=== PATIENT | female | born 2005 | race Caucasian/White ===

== ENCOUNTER 2023-11-14 15:50 | Outpatient (CLI) | payer OTHER, SELFPAY ==
[2023-11-14 23:17] LABS: Chlamydia DNA Amplified* NOT DETECTED (No Detected); GC DNA Amplified* NOT DETECTED (No Detected)
== END 2023-11-14 15:51 | disposition home or self-care (01) ==
PROVIDERS: Visit Provider Nurse Practitioner Family
DX: R50.9 Fever, unspecified (principal); R52 Pain, unspecified; B27.90 Infectious mononucleosis, unspecified without complication; R82.90 Unspecified abnormal findings in urine; Z87.440 Personal history of urinary (tract) infections; Z11.3 Encounter for screening for infections with a predominantly sexual mode of transmission; Z11.4 Encounter for screening for human immunodeficiency virus [HIV]; Z11.9 Encounter for screening for infectious and parasitic diseases, unspecified
CPT/HCPCS: 86618; 86703; 87086; 87185; 87186; 87491; 87591

== ENCOUNTER 2024-09-07 | Emergency (ER) | payer OTHER, SELFPAY ==
[2024-09-07 00:07] VITALS: BP 142/85; PULSE 82; RESP 18; TEMP 36.8; O2SAT 96; BMI 20.4
[2024-09-07 00:15] LABS: Appearance Urine Cloudy (Clear); Bilirubin Urine 1+ (Negative); Blood Urine 3+ (Negative); Color Urine Yellow (Yellow); Glucose Urine Negative (Negative); Ketones Urine 2+ (Negative); Leukocyte Esterase Urine Trace (Negative); Nitrite Urine Negative (Negative); Protein Urine 3+ (Negative); Specific Gravity Urine >= 1.030 (1.000-1.030)
[2024-09-07 00:19] LABS: Ur HCG Qualitative* POSITIVE (Negative)
[2024-09-07 00:23] LABS: Bacteria Urine Few; Squamous Epithelial Cell Urine Few (None-Few)
[2024-09-07 00:24] LABS: Mucus Urine Moderate
--- NOTE | 2024-09-07 00:29 | CRLHL7_ITS ---
For Patients: As a result of the Century Cures Act, medical imaging exams and procedure reports are released immediately into your electronic medical record. You may view this report before your referring provider. If you have questions, please contact your health care provider. INDICATION: Vaginal bleeding. TECHNIQUE: Ultrasound OB pelvis transabdominal and transvaginal. Real-time rodriguez-scale imaging of the pelvis was performed. COMPARISON: None. FINDINGS: No intrauterine identified. Uterus is unremarkable. Endometrium measures 6 mm. Ovaries are normal in size and demonstrate normal blood flow. Left ovarian corpus luteal cyst. Hypoechoic area in the right adnexa separate from but adjacent to the right ovary measuring 2.5 x 1.8 x 1.4 cm. No suspicious fluid collections noted in the cul-de-sac. IMPRESSION: 1. No intrauterine . 2. Hypoechoic area in the right adnexa separate from but adjacent to the right ovary measuring 2.5 x 1.8 x 1.4 cm, nonspecific. Ectopic would be a differential consideration. Dictated by Jorgito Stevens MD @ 09/07/2024 2:12:59 AM (Electronically Signed)
--- NOTE | 2024-09-07 00:37 | ED_ITS ---
HPI - General Adult General Chief complaint: Vaginal Bleeding Stated complaint: +preg test/spotting Time Seen by Provider: 09/07/24 00:24 Source: patient Mode of arrival: ambulatory Limitations: no limitations History of Present Illness HPI narrative: 19-year-old female presents to the emergency department for evaluation of lower pelvis cramping and vaginal spotting. She is on a continuous oral contraceptive for migraines, does not get regular menstrual cycle. Started having spotting 3 days ago and then heavier bleeding tonight. No passage of tissue. Did soak through a regular tampon about a 1/2 hour, is now contained in a super tampon. She called [facility] and they advised her to take a test which was surprisingly positive. She reports that she was in a regular monogamous relationship until about 2 weeks ago. She has not had any symptoms of such as nausea, excessive fatigue, etc.. No trauma or injury. No prior history of abdominal surgeries. Denies symptoms of STDs. Does not take any anticoagulants. Has not taken any Tylenol or other medications to help with the cramping. No trauma or injury. Reports that her past medical history is benign, has a history of depression well controlled on bupropion 150 mg extended release once daily. Only other home medication besides of appropriate in is the low-dose oral contraceptive. Allergy to azithromycin causing diarrhea. Does have a prior history of tobacco use. ROS is notable for the pelvic and gynecological symptoms only, otherwise denies times 12 systems. Related Data Previous Rx's ?Medication ?Instructions ?Recorded norethindrone acetate 1 mg-ethinyl 1 tab PO QDAY #63 t abs 03/01/24 estradiol 20 mcg tablet (Alanna) bupropion HCl 150 mg 24 hr tablet, 150 mg PO QAM #30 t abs 05/19/24 extended release (Wellbutrin XL) Allergies Allergy/AdvReac Type Severity Reaction Status Date / Time azithromycin Allergy Intermediate Diarrhea Verified 03/01/24 09:[address] [facility] Medical History Cigarette smoker (2021) ?F17.210 - Nicotine dependence, cigarettes, uncomplicated (ICD-10) Migraine ?G43.909 - Migraine, unspecified, not intractable, without status migrainosus (ICD-10) Depression (~2019) ?F32.A - Depression, unspecified (ICD-10) Surgical History No history of previous surgery Family History Maternal Grandmother Myocardial infarction, Onset Age: 90 Ovarian cancer, Onset Age: 80 Family/Other Colon cancer Maternal Grandfather Prostate cancer, Onset Age: 55 Mother Depression Brother ADHD Social History Narrative: Single, [place] student [employer], no kids Exercise twice a week ultimate Fris[employer] Smoke is 2 cigarettes a day, 2 pack years 4 alcoholic drinks a week Marijuana use twice a week What is your current living situation?: I presently have a place to live Problems where you live: no known problems In the past 12 months, utilities in danger of being shut off: no In past 12 months, lack of transportation kept you from medical appts, meetings, work, or getting things needed for daily living: no In the past 12 mos, have been you worried that your food would run out before you had money to buy more?: never true In the past 12 mos, the food you bought just didn't last and you didn't have money to buy more?: never true How often does anyone, including family, friends and others, physically hurt you : never How often does anyone, including family, friends and others, insult or talk down to you: never How often does anyone, including family, friends and others, threaten you with harm: never How often does anyone, including family, friends and others, scream or curse at you: never Exam Const: Vital Signs, click to edit/add: Vital Signs - 24 hr 09/07/24 00:07 Temperature 98.3 F Pulse Rate [Left P ulse Oximeter] 82 Respiratory Rate 18 Blood Pressure [Ri ght Upper Arm] 142/85 H Pulse Oximetry 96 Oxygen Delivery Me thod Room Air Documenting provider has reviewed patient's vital signs: yes Common normals: no apparent distress General appearance: cooperative, comfortable and well kempt Other: Excellent historian. HENMT: Common normals: normocephalic, moist oral mucous membranes and oropharynx normal Head and scalp: normocephalic Eye: Common normals: conjunctivae normal General eye: normal appearance of both eyes Conjunctiva: conjunctiva(e) normal Resp: Common normals: normal respiratory effort and clear to auscultation bilaterally Effort & inspection: able to speak in complete sentences Auscultation: clear to auscultation bilaterally Cardio: Common normals: regular rate, regular rhythm, S1 normal heart sound, S2 normal heart sound and no murmurs Rate: regular rate Rhythm: regular rhythm Heart sounds: S1 normal and S2 normal GI: Common normals: Normal to inspection, nondistended, normoactive bowel sounds present, soft to palpation, no hepatosplenomegaly and no masses Palpation: soft and no hepatosplenomegaly Other: Fundal height not palpable. Mild tenderness to right suprapubic area. No rebound tenderness or guarding. Extremity: Common normals: normal to inspection and normal capillary refill Psych: Common normals: cooperative Appearance: well kempt Attitude: engaged Activity/motor behavior: appropriate eye contact Attention/concentration: attention grossly intact Memory/cognition: memory grossly intact Insight: insight good Judgement: judgment good Skin: Common normals: no rashes or lesions noted General skin exam: no rashes or lesions noted Course Course ED Course: 19-year-old female with positive test, now with right lower quadrant pain and spotting. Parental diagnosis less likely appendicitis, more likely miscarriage, normal , ectopic , less likely kidney stone or other intra-abdominal process. Will obtain blood type, hCG level, CBC. I have called an ultrasound because it will take some time to get these results and will then [place] back and perform pelvic exam while we are waiting for these studies. No initial signs of hypotension, tachycardia or other signs of dangerous hemorrhage. Reevaluation(s) Reevaluation #1: Preliminary read on the ultrasound is suspicious for ectopic . Ob provider consult id. Patient's hCG level is right around a 1000. She is a good candidate for methotrexate. Patient and I talked extensively about the risks and benefits of methotrexate, side effect profile. I cannot guarantee that there is an ectopic but it is highly suspicious based on her symptoms, ultrasound findings. Counseled patient that if she did elect to use the methotrexate for treatment of this ectopic , it would and a potentially viable . This is incredibly low risk but cannot completely be determine. Waiting longer to tell for sure does put her health at risk and could impair future fertility. She would be at risk of tubal rupture, fatal hemorrhage or other dangerous condition. Upon discussion of risks benefits and treatment options, she is favoring methotrexate treatment. I do agree that this is her safest option, Ob provider supportive as well. She is Rh negative, prophylactic protocol initiated, will likely need micro RhoGAM dose. Counseled patient that she will require follow-up labs on days 4 and 7. She will need to see provider on day 7 as well. She verbalizes understanding and agreement. Methotrexate has a high success rate but if she has severe bleeding, severe pain, other signs of complications she would need to be re-evaluated in the emergency room right away. RhoGAM and methotrexate dose is given per nursing team. Vital Signs Vital signs: Initial Vital Signs Temperature 98.3 F 09/07/24 00:07 Temperature Source Temporal Artery Scan 09/07/24 00:07 Pulse Rate 82 09/07/24 00:07 Respiratory Rate 18 09/07/24 00:07 Blood Pressure 142/85 H 09/07/24 00:07 Blood Pressure Mean 104 09/07/24 00:07 Blood Pressure Position Sitting 09/07/24 00:07 Pulse Oximetry 96 09/07/24 00:07 Oxygen Delivery Method Room Air 09/07/24 00:07 Vital Signs Temperature 98.3 F 09/07/24 00:07 Pulse Rate 82 09/07/24 00:07 Respiratory Rate 18 09/07/24 00:07 Blood Pressure 142/85 H 09/07/24 00:07 Pulse Oximetry 96 09/07/24 00:07 Oxygen Delivery Method Room Air 09/07/24 00:07 Temperature 98.3 F 09/07/24 00:07 Pulse Rate 82 09/07/24 00:07 Respiratory Rate 18 09/07/24 00:07 Blood Pressure 142/85 H 09/07/24 00:07 Pulse Oximetry 96 09/07/24 00:07 Oxygen Delivery Method Room Air 09/07/24 00:07 Medications Administered Medications: Discontinued Medications Generic Name Dose Route Start Last Admin Trade Name Freq PRN Reason Stop Dose Admin Methotrexate 85 mg 09/07/24 02:24 09/07/24 03:15 Methotrexate 25 Mg/Ml Inj 50 mg/m2 (85 mg) 09/07/24 02:25 85 mg IM Administration ONCE ONE Medical Decision Making Lab Data Lab results reviewed: Yes I reviewed the patient's lab results Lab results narrative: Positive test, blood type is B negative. HCG level is around a 1000. Labs: Lab Results 09/07/24 09/07/24 09/07/24 Range/Units 00:03 00:45 02:19 WBC 12.05 H (4.50-11.00) K/uL RBC 4.08 (4.00-5.20) m/uL Hgb 13.0 (12.0-16.0) gm/dL Hct 38.9 (33.0-51.0) % MCV 95 (80-100) fL MCH 32 (26-34) pg MCHC 33 (32-36) gm/dL RDW Coeff of Aravind 13.1 (11.5-15.5) % Plt Count 228 (140-440) K/uL Neut % (Auto) 73.0 H (42.0-72.0) % Lymph % (Auto) 16.8 L (20-44) % [place] % (Auto) 6.1 (0.0-11.0) % Eos % (Auto) 2.7 (0.0-7.0) % Baso % (Auto) 0.5 (0.0-3.0) % Neut # (Auto) 8.80 H (1.7-7.0) K/uL Lymph # (Auto) 2.00 (0.90-2.90) K/uL [place] # (Auto) 0.70 (0.00-0.90) K/UL Eos # (Auto) 0.30 (0.00-0.50) K/uL Baso # (Auto) 0.10 (0.00-0.30) K/uL Abs Immat Gran (auto) 0.10 (0.00-0.30) K/uL Imm/Tot Granulo (auto) 0.9 % BUN 10 (5-24) mg/dL Creatinine 0.6 (0.5-1.5) mg/dL Estimated Creat Clear 138.07 Estimated GFR 131 ml/min AST 35 (12-35) U/L ALT 18 (4-35) U/L HCG, Quant 1010.90 mIU/mL Urine Color Yellow (Yellow) Urine Appearance Cloudy A (Clear) Urine pH 6.0 (5.0-8.5) Ur Specific [place] >= 1.030 (1.000-1.030) Urine Protein 3+ A (Negative) Urine Glucose (UA) Negative (Negative) Urine Ketones 2+ A (Negative) Urine Blood 3+ A (Negative) Urine Nitrite Negative (Negative) Urine Bilirubin 1+ A (Negative) Urine Urobilinogen 1.0 (0.2-1.0) Ur Leukocyte Esterase Trace A (Negative) Urine RBC 2-5 A (0-2) Urine WBC 2-5 (0-5) Ur Squamous Epith Cells Few (None-Few) Urine Bacteria Few A (None) Urine Mucus Moderate A (None) Urine HCG, Qual POSITIVE H (Negative) Lab Acknowledgement Test Added Blood Type B Negative 09/07/24 09/07/24 Range/Units 02:39 02:57 WBC (4.50-11.00) K/uL RBC (4.00-5.20) m/uL Hgb (12.0-16.0) gm/dL Hct (33.0-51.0) % MCV (80-100) fL MCH (26-34) pg MCHC (32-36) gm/dL RDW Coeff of Aravind (11.5-15.5) % Plt Count (140-440) K/uL Neut % (Auto) (42.0-72.0) % Lymph % (Auto) (20-44) % [place] % (Auto) (0.0-11.0) % Eos % (Auto) (0.0-7.0) % Baso % (Auto) (0.0-3.0) % Neut # (Auto) (1.7-7.0) K/uL Lymph # (Auto) (0.90-2.90) K/uL [place] # (Auto) (0.00-0.90) K/UL Eos # (Auto) (0.00-0.50) K/uL Baso # (Auto) (0.00-0.30) K/uL Abs Immat Gran (auto) (0.00-0.30) K/uL Imm/Tot Granulo (auto) % BUN (5-24) mg/dL Creatinine (0.5-1.5) mg/dL Estimated Creat Clear Estimated GFR ml/min AST (12-35) U/L ALT (4-35) U/L HCG, Quant mIU/mL Urine Color (Yellow) Urine Appearance (Clear) Urine pH (5.0-8.5) Ur Specific [place] (1.000-1.030) Urine Protein (Negative) Urine Glucose (UA) (Negative) Urine Ketones (Negative) Urine Blood (Negative) Urine Nitrite (Negative) Urine Bilirubin (Negative) Urine Urobilinogen (0.2-1.0) Ur Leukocyte Esterase (Negative) Urine RBC (0-2) Urine WBC (0-5) Ur Squamous Epith Cells (None-Few) Urine Bacteria (None) Urine Mucus (None) Urine HCG, Qual (Negative) Lab Acknowledgement Test Added Test Added Blood Type Imaging Data Abdominal ultrasound: Attestation: I have reviewed the pertinent imaging results. My impression: No signs of an intrauterine but there is a quarter-sized mass near the right ovary that is suspicious for an ectopic . Radiologist's impression: IMPRESSION: 1. No intrauterine . 2. Hypoechoic area in the right adnexa separate from but adjacent to the right ovary measuring 2.5 x 1.8 x 1.4 cm, nonspecific. Ectopic would be a differential consideration. Dictated by Jorgito Stevens MD @ 09/07/2024 2:12:59 AM Discharge Plan Discharge Clinical Impression: Ectopic of right ovary Patient Disposition: Home w/ Parent or Adult Condition: Improved Instructions: Ectopic (DC) Additional Instructions: As we discussed, we are highly suspicious of an ectopic next to your right ovary. There are no signs of developing inside your uterus. This is not compatible with a baby that could survive. After discussion of the options, I completely agree with your choice for the methotrexate, this single dose was given here in the emergency room. This will stay in your system for several weeks. It will be strongest for the next week. No alcohol for at least 10 days, even then use smaller than your typical amounts for a total of 4 weeks. I would recommend that you continue taking your control. You will need follow-up labs on Friday and then an office visit Friday or Friday to see an Ob provider and have labs performed again. Falling hCG levels would be a sign of success with the methotrexate. It is okay to use Tylenol for pain and cramping. High doses in frequent dosing of ibuprofen may make the methotrexate slightly less effective but if you have very bothersome pain, it is okay to use. Severe symptoms would be unexpected and I would like for you to be re-evaluated. The bleeding may increase slightly for 1-2 days with use of the methotrexate but then tends to slow again. Your unlikely to passed tissue because of the ectopic . The bleeding that your having tonight is pretty similar to what you should expect for the next couple of days. Light activity only for the next 48 hours, then increasing as you feel comfortable. It is okay to attend class as long as there is no heavy physical exertion. It is okay to continue your Wellbutrin. Activity Level: Activity as Tolerated Discharge Diet: Regular Prescriptions: No Action norethindrone ac-eth estradiol [Alanna 05/03 ()] 1-20 mg-mcg tablet 1 tab PO QDAY Qty: 63 4RF Rx Instructions: Take continuously, no placebo week. bupropion HCl [Wellbutrin XL] 150 mg tablet extended release 24 hr 150 mg PO QAM Qty: 30 0RF Follow Up/Referrals: Elly Deleon MD [Primary Care Provider, Family Practice] Stand Alone Forms: Ludesi Info Instructions
--- OUTSIDE RECORDS SUMMARY | 2024-09-07 00:44 | XMS_ITS | Clinical Summary ---
Author Organization [facility] Address [id number] [place] [address] Care Team Providers Care Junior Designer Name Role Phone Unavailable Primary Care Provider Unavailabl e Source Comments You are receiving this document as you are listed as the primary care provider,follow-up provider, or the patient has been referred to you for consultation.This is in compliance with the Medicare and[facility] EHR Incentive Program,which states Providers who transition their patient to another setting of careor provider of care or refers their patient to another provider of care shouldprovide summary care record for each transition of care or referral. The Networking Effect Allergies Active Allergy Reactions Criticality Noted Date Comments Azithromycin Other, see comments High 06/08/2016 Diarrhea Medications JH 05/03 1-20 MG-MCG tablet Take 1 Tablet by mouth daily. 08/16/2022 Active buPROPion (WELLBUTRIN XL) 150 MG 24 hour release tablet Take 1 Tablet (150 mg) by mouth daily. Active Active Problems No known active problems Immunizations Immunization Administration Dates Next Due 4vHPV (Gardasil) 09/16/2014 9vHPV (Gardasil 9) 04/25/2015,11/24/2014 DTaP 03/29/2008, 4,2003,2003 DTaP/Hib 06/26/2004 HepA Ped/Adol (1-18 yrs) 03/22/2009,03/29/2008 HepB Ped/Adol (0-18 yrs) 06/26/2004,2003,0 2003 Hib (ActHIB) 2003,2003,2003 IPV (Polio) 03/29/2008, 4,2003,2003 Influenza IIV4 (Quadrivalent ) 0.5mL (62424) 12/27/2015 Influenza, Unspecified Formulation 03/15/2015, MMR 03/29/2008,03/29/2004 Pneumococcal 7, PED 06/26/2004, 4,2003,2003 Tdap 09/16/2014 Varicella 03/29/2008,03/29/2004 Social History Tobacco Use Types Packs/Day Years Used Date Smoking Tobacco: Never Comments No Sex and Gender Information Value Date Recorded Sex Assigned at Not on file Legal Sex Female 2:53 PM [employer] Gender Identity Not on file Sexual Orientation Not on file Last Filed Vital Signs Vital Sign Reading Time Taken Comments Blood Pressure 117/72 10/23/2022 2:47 PM CDT Pulse 87 10/23/2022 2:47 PM CDT Temperature 36.6 C (97.9 F) 10/23/2022 2:47 PM CDT Respiratory Rate 16 10/23/2022 2:47 PM CDT Oxygen Saturation 97% 10/23/2022 2:47 PM CDT Inhaled Oxygen Concentration - - Weight - - Height - - Body Mass Index - - Plan of Treatment Health Maintenance Due Date Last Done Comments Cervical Cancer Screening Due 2003 Chlamydia 2003 Hep C Screening (Preventive Services) 2003 MenB Immunization Discussion 2003 HIV Screening (Preventive Services) 2019 Adult Preventive Visit 2021 COVID-19 Vaccine ( season) 2023 02/11/2022, 08/04/2020, 07/14/2020 DTaP/Tdap/Td Vaccine (7 - Tdap) 09/16/2024 09/16/2014, 03/29/2008, 06/26/2004, Additional history exists Influenza Vaccine (Season Ended) 2024 02/11/2022, 01/23/2021, 12/14/2019, Additional history exists Zoster/Shingles Vaccine (1 of 2) 2053 HepB Vaccine Completed 06/26/2004, 12/13, 2003 Hib Vaccine Completed 06/26/2004, 09/12, 2003, Additional history exists Pneumococcal Vaccine Aged Out 06/26/2004, 06/26/2004, 03/29/2004, Additional history exists No longer eligible based on patient's age to complete this topic IPV (Polio) Vaccine Completed 03/29/2008, 2003, 2003, Additional history exists Varicella Vaccine Completed 03/29/2008, 03/29/2004 HepA Vaccine Completed 03/22/2009, 03/29/2008 HPV Vaccine Completed 04/25/2015, 11/12, 09/16/2014 MCV4 Vaccine Completed 04/27/2019, 09/16/2014 Insurance [employer] MEDICA CHOICE
[2024-09-07 00:50] LABS: Basophils Percent Auto 0.5 % (0.0-3.0); Eosinophils Percent Auto 2.7 % (0.0-7.0); Hematocrit 38.9 % (33.0-51.0); Immature Granulocytes Pct Auto 0.9 %; Lymphocytes Percent Auto 16.8 % (20-44); Mean Corpuscular HGB Conc 33 gm/dL (32-36); Mean Corpuscular Hemoglobin 32 pg (26-34); Mean Corpuscular Volume 95 fL (80-100); Monocytes Percent Auto 6.1 % (0.0-11.0); Platelet Count* 228 K/uL (140-440); RDW Coefficient of Variation % 13.1 % (11.5-15.5); Red Blood Count 4.08 m/uL (4.00-5.20); White Blood Count* 12.05 K/uL (4.50-11.00)
[2024-09-07 00:52] LABS: Slide Review Reflex No
[2024-09-07 02:37] LABS: Alanine Aminotransferase* 18 U/L (4-35); Aspartate Amino Transferase* 35 U/L (12-35)
[2024-09-07 02:49] LABS: Creatinine* 0.6 mg/dL (0.5-1.5); Est. Creatinine Clearance* 138.07; Estimated Glomerular Filt Rate 131 ml/min
[2024-09-07 03:09] LABS: Blood Urea Nitrogen* 10 mg/dL (5-24)
[2024-09-07 03:15] VITALS: BP 109/71; PULSE 86; RESP 18; TEMP 36.8; O2SAT 96
[2024-09-07] MEDS: METHOTREXATE 25 MG/ML inj 85 MG IM (03:15)
[2024-09-07 03:40] VITALS: BP 112/71; PULSE 84; RESP 18; TEMP 36.8; O2SAT 96
[2024-09-07 03:56] VITALS: BP 112/71; PULSE 84; RESP 18; TEMP 36.8
== END 2024-09-07 03:57 | disposition home or self-care (01) ==
PROVIDERS: Emergency Provider Family Medicine; PCP Family Medicine
DX: O00.201 Right ovarian pregnancy without intrauterine pregnancy (principal)
CPT/HCPCS: 36415; 76801; 76817; 81001; 81025; 82565; 84450; 84460; 84520; 84702; 85025; 86900; 86901; 87086; 93976; 96372; 99284; J2791; J9260

== ENCOUNTER 2024-09-10 13:22 | Outpatient (CLI) | payer OTHER, SELFPAY | END 2024-09-10 13:23 | disposition home or self-care (01) | LOC: NFLDREF 09-15 00:45 | PROVIDERS: PCP Family Medicine; Referring Provider Family Medicine; Visit Provider Obstetrics & Gynecology | DX: O00.201 Right ovarian pregnancy without intrauterine pregnancy (principal) | CPT/HCPCS: 84702 ==

== ENCOUNTER 2024-09-13 09:07 | Outpatient (CLI) | payer OTHER, SELFPAY | END 2024-09-13 09:08 | disposition home or self-care (01) | LOC: NFLDREF 19:37 | PROVIDERS: PCP Family Medicine; Referring Provider Family Medicine; Visit Provider Obstetrics & Gynecology | DX: O00.201 Right ovarian pregnancy without intrauterine pregnancy (principal) | CPT/HCPCS: 84450; 84460; 84702 ==

== ENCOUNTER 2024-09-21 14:10 | Outpatient (CLI) | payer OTHER, SELFPAY | END 2024-09-21 14:11 | disposition home or self-care (01) | LOC: NFLDREF 09-23 10:54 | PROVIDERS: PCP Family Medicine; Referring Provider Family Medicine; Visit Provider Obstetrics & Gynecology | DX: O00.201 Right ovarian pregnancy without intrauterine pregnancy (principal) | CPT/HCPCS: 84702 ==

== ENCOUNTER 2024-09-29 13:36 | Outpatient (CLI) | payer OTHER, SELFPAY | END 2024-09-29 13:37 | disposition home or self-care (01) | LOC: NFLDREF 10-03 02:41 | PROVIDERS: PCP Family Medicine; Referring Provider Family Medicine; Visit Provider Obstetrics & Gynecology | DX: O00.90 Unspecified ectopic pregnancy without intrauterine pregnancy (principal) | CPT/HCPCS: 84702 ==